=== PATIENT | male | born 1990 | race Caucasian/White ===

== ENCOUNTER → 2025-08-14 | Outpatient (CLI) | payer BC ==
[2025-08-14 09:44] LABS: BASO # 0.0 10^3/uL (0.0-0.2); BASO % 1.0 % (0.0-1.0); EOS # 0.1 10^3/uL (0.0-0.5); EOS % 3.9 % (0.0-3.0); LYMPH # 0.7 10^3/uL (1.5-5.0); LYMPH % 23.1 % (24.0-44.0); MONO # 0.2 10^3/uL (0.0-0.8); MONO % 7.8 % (2.0-8.0); NEUTROPHILS # 2.0 10^3/uL (1.5-8.5); NEUTROPHILS % 63.9 % (36.0-66.0); PLATELET COUNT, AUTOMATED 233 10^3/uL (150-450)
[2025-08-14 10:07] LABS: LDH LACTATE DEHYDROGENASE 283 U/L (120-246)
[2025-08-14 10:08] LABS: C REACTIVE PROTEIN QUANTITATIV 1.06 MG/DL (<1.0)
[2025-08-14 10:09] LABS: ALT/SGPT 101 U/L (7.0-40); AST/SGOT 95 U/L (<34); CALCIUM LEVEL 8.9 MG/DL (8.5-10.1); CARBON DIOXIDE LEVEL 26 MMOL/L (20-31); CHLORIDE LEVEL 107 MMOL/L (98-107); CREATININE FOR GFR 1.00 MG/DL (0.70-1.30); GLOMERULAR FILTRATION RATE > 90.0 (>60); POTASSIUM SERUM 4.2 MMOL/L (3.5-5.1); SODIUM LEVEL 142 MMOL/L (136-145)
[2025-08-14 10:12] LABS: CPK CREATINE PHOSPHOKINASE 202 U/L (46-171)
[2025-08-19 06:03] LABS: LYME TOTAL ANTIBODY CIA <= 0.90 Index (<=0.90)
== END ==
LOC: M LAB 08:34
PROVIDERS: ATTEND Registered Nurse School
DX: M79.7 Fibromyalgia (principal)